=== PATIENT | female | born 1945 | race Caucasian/White ===

== ENCOUNTER 2017-09-06 08:51 | Day surgery (SDC) | payer OTHER, MEDICARE ==
[2017-09-06] MEDS ORDERED: DIPHENHYDRAMINE INJ 50 MG/ML VIAL ONE (09:23)
[2017-09-06] MEDS: MIDAZOLAM HCL 5 MG/5 ML VIAL ONE ×4 (11:18→11:42)
[2017-09-06] MEDS: MEPERIDINE HCL/PF 100 MG/ML AMP ONE ×3 (11:18→11:42)
[2017-09-06] MEDS ORDERED: SIMETHICONE 40 MG/0.6 ML ML ONE (11:19)
[2017-09-06 12:25] VITALS: BP_SYST 165
== END 2017-09-06 12:50 | disposition home or self-care (01) ==
LOC: SDS 08:51
PROVIDERS: ATTEND Internal Medicine Gastroenterology
PROC: 0DBC8ZX Excision of Ileocecal Valve, Via Natural or Artificial Opening Endoscopic, Diagnostic (ICD-10-PCS; 2017-09-06)
PROC: 0DB78ZX Excision of Stomach, Pylorus, Via Natural or Artificial Opening Endoscopic, Diagnostic (ICD-10-PCS; principal; 2017-09-06 13:15)
PROC: 0DB78ZX Excision of Stomach, Pylorus, Via Natural or Artificial Opening Endoscopic, Diagnostic (ICD-10-PCS; 2017-09-06 13:15)
DX: K31.7 Polyp of stomach and duodenum (principal); K29.70 Gastritis, unspecified, without bleeding; K44.9 Diaphragmatic hernia without obstruction or gangrene; K21.9 Gastro-esophageal reflux disease without esophagitis; K57.30 Diverticulosis of large intestine without perforation or abscess without bleeding; K64.8 Other hemorrhoids; D12.0 Benign neoplasm of cecum; Z86.010 Personal history of colon polyps
CPT/HCPCS: 43239; 43251; 45380; 87081; 88305; 36415; 88312; 88313; J1200; J2175; J2250; J7030